=== PATIENT | female | born 1990 | race Caucasian/White ===

== ENCOUNTER 2020-01-29 10:22 | Day surgery (SDC) | payer OTHER ==
[2020-01-29] VITALS (8 sets, daily range): BP systolic 90–122; BP diastolic 43–82; PULSE 60–105; TEMP 97.8
[~2020-01-29] VITALS: Ht 162.6 cm; Wt 104.5 kg
[2020-01-29 11:12] LABS: BASO % 0.7 % (0.0-2.0); EOS # 0.1 (0.0-0.7); EOS % 2.1 % (0-4.0); GRAN # 3.5 (1.4-6.5); HEMATOCRIT 39.7 % (37.0-47.0); HEMOGLOBIN 12.4 g/dl (12.5-16.0); LYMPH # 1.6 (1.2-3.4); LYMPH % 28.7 % (20.0-51.0); MEAN CELL VOLUME 80 fl (80.0-100.0); MEAN CORPUSCULAR HEMOGLOBIN 25 pg (27.0-31.0); MEAN CORPUSCULAR HGB CONC 31 g/dl (33.0-37.0); MEAN PLATELET VOLUME 10.2 fl (7.4-10.4); MONO # 0.4 (0.1-0.6); MONO % 7.1 % (1.7-9.3); PLATELET COUNT 212 K/mm3 (130-400); RED BLOOD COUNT 4.96 M/mm3 (4.10-5.30); REDCELL DISTRIBUTION WIDTH-CV 15.9 % (11.5-14.5)
[2020-01-29 11:20] LABS: BILIRUBIN,TOTAL 0.4 mg/dL (0.0-1.0); C-REACTIVE PROTEIN 0.9 mg/dL (0.0-0.9); CALCIUM 9.1 mg/dL (8.4-10.2); CREATININE, serum 0.59 (0.52-1.25); POTASSIUM 4.2 mmol/L (3.4-5.0); TOTAL PROTEIN 7.2 gm/dL (6.4-8.2)
[2020-01-29 11:56] LABS: COLLECTION METHOD CLEAN CATCH
[2020-01-29 12:14] LABS: MUCOUS Present /lpf; PH 7 (5-8); URINE APPEARANCE Hazy; URINE BACTERIA Rare /hpf; URINE BILIRUBIN Negative (NEGATIVE); URINE BLOOD Negative (NEGATIVE); URINE COLOR Yellow; URINE GLUCOSE Negative (NEGATIVE); URINE KETONE Negative (NEGATIVE); URINE LEUKOCYTE ESTERASE Negative (NEGATIVE); URINE NITRATE Negative (NEGATIVE); URINE PROTEIN(semi-quant) Negative (NEGATIVE); URINE RBC 0-2 /hpf; URINE UROBILINOGEN Negative (NEGATIVE)
[2020-01-29] MEDS ORDERED: MOTRIN 200200 MG/TAB PO (13:37)
[2020-01-29] MEDS ORDERED: ZANTAC 7575 MG (13:37)
--- NOTE | 2020-01-29 18:15 | NUR ---
1815 TO 222 PER BED FROM PACU. IV INFUSING. O2 ON PER LORELEI. ANAND PATENT. SCDS ON. AWAKE AND ALERT. C/0 SOME SURGICAL PAIN. ORIENTED TO ROOM.
--- NOTE | 2020-01-29 19:00 | NUR ---
1900 SITTING UP IN BED. REG DIET OFFERED BUT DOES NOT LIKE THE FOOD HERE. PO FLUIDS TAKEN WELL.
--- NOTE | 2020-01-29 21:15 | NUR ---
2114 SITTING ON SIDE OF BED. YUDY CARE DONE. STATES IS HAVING DISCOMFORT FROM CATH AND WONDERS IF IT CAN BE TAKEN OUT. DR ARSHAD NOTIFIED AND ORDER TO REMOVE. 2119 MICHEL CATH DCD WITH 150CC CONCENTRATED URINE IN BAG. ENCOURAGED TO DRINK MORE FLUIDS. IV ALL INFUSED AND TO INT.
[2020-01-30] VITALS: BP 104/53; PULSE 68; TEMP 97.9
[2020-01-30 04:00] VITALS: BP 107/45; PULSE 71; TEMP 98.5
[2020-01-30 07:01] VITALS: BP 120/46; PULSE 61; TEMP 97.8
[2020-01-30] MEDS ORDERED: IBU600 MG PO (11:37)
[2020-01-30] MEDS ORDERED: NORCO 325 MG-7.1 TAB PO (11:37)
== END 2020-01-30 13:00 | disposition home or self-care (01) ==
LOC: COL.ER 10:22 → OB 13:43 → SDCO 13:43 → COL.ER 13:43 → OB 01-30 13:00 → SDCO 01-30 13:00
PROVIDERS: Physician Assistant
DX: N80.1 Endometriosis of ovary (principal); N83.202 Unspecified ovarian cyst, left side; Z88.0 Allergy status to penicillin; Z88.5 Allergy status to narcotic agent; F17.210 Nicotine dependence, cigarettes, uncomplicated; F41.9 Anxiety disorder, unspecified; Z90.49 Acquired absence of other specified parts of digestive tract
CPT/HCPCS: OP; A4314; C1765; J0330; J0690; J1100; J1170; J1885; J2405; J2704; J2710; J3010; J7030; J7120; Q9967

== ENCOUNTER 2020-07-17 13:21 | Emergency (ER) | payer OTHER ==
[~2020-07-17] VITALS: Ht 162.6 cm; Wt 106.8 kg
[~2020-07-17 13:21] MED LIST: IBU600 MG PO; MOTRIN 200200 MG/TAB PO; NORCO 325 MG-7.1 TAB PO; ZANTAC 7575 MG
[2020-07-17 13:38] VITALS: TEMP 97.9
[2020-07-17] MEDS ORDERED: NORCO 325 MG-51 TAB PO (14:21)
[2020-07-17] MEDS ORDERED: CLEOCIN HC150 MG/CAP PO (14:21)
[2020-07-17 14:46] VITALS: BP 118/79; PULSE 81
== END 2020-07-17 14:44 | disposition home or self-care (01) ==
LOC: COL.ER 13:21
DX: K12.2 Cellulitis and abscess of mouth (principal); Z88.0 Allergy status to penicillin; Z88.6 Allergy status to analgesic agent
CPT/HCPCS: J1170; J1885

== ENCOUNTER 2021-07-12 20:43 | Emergency (ER) | payer SELFPAY ==
[~2021-07-12] VITALS: Ht 162.6 cm; Wt 120.5 kg
[~2021-07-12 20:43] MED LIST changes: +CLEOCIN HC150 MG/CAP PO; +NORCO 325 MG-51 TAB PO
[2021-07-13 00:35] VITALS: BP 141/76; PULSE 72; TEMP 98.2
== END 2021-07-13 00:40 | disposition home or self-care (01) ==
LOC: COL.ER 20:43
DX: R51.9 Headache, unspecified (principal); Z88.6 Allergy status to analgesic agent
CPT/HCPCS: J1200; J1885; J2405; J3010

== ENCOUNTER 2021-07-18 15:27 | Emergency (ER) | payer SELFPAY ==
[~2021-07-18] VITALS: Ht 162.6 cm; Wt 127.3 kg
[2021-07-18 15:43] VITALS: BP 143/69; PULSE 99; TEMP 97.9
== END 2021-07-18 17:17 | disposition left against medical advice (07) ==
LOC: COL.ER 15:27
DX: R51.9 Headache, unspecified (principal); F17.290 Nicotine dependence, other tobacco product, uncomplicated
CPT/HCPCS: J1790; J1885; J3030

== ENCOUNTER 2021-09-04 20:36 | Emergency (ER) | payer SELFPAY ==
[~2021-09-04] VITALS: Ht 162.6 cm; Wt 131.8 kg
[2021-09-04 21:09] VITALS: BP 145/87; TEMP 97.5
[2021-09-04] MEDS ORDERED: CLEOCIN HCL300 MG PO (21:18)
[2021-09-04] MEDS ORDERED: NORCO 325 MG-51 TAB PO (21:18)
[2021-09-04 21:35] VITALS: PULSE 78
== END 2021-09-04 21:35 | disposition home or self-care (01) ==
LOC: COL.ER 20:36
DX: K04.7 Periapical abscess without sinus (principal); Z88.0 Allergy status to penicillin; Z88.5 Allergy status to narcotic agent

== ENCOUNTER 2021-11-16 13:38 | Emergency (ER) | payer SELFPAY ==
[~2021-11-16] VITALS: Ht 162.6 cm; Wt 127.3 kg
[~2021-11-16 13:38] MED LIST changes: +CLEOCIN HCL300 MG PO
[2021-11-16 13:43] VITALS: TEMP 98.1
[2021-11-16 14:36] LABS: BASO % 0.3 % (0.0-2.0); GRAN # 1.4 K/mm3 (1.4-6.5); GRAN % 44.9 % (42.2-75.2); HEMATOCRIT 41.3 % (37.0-47.0); HEMOGLOBIN 13.2 g/dl (12.5-16.0); LYMPH # 1.2 K/mm3 (1.2-3.4); LYMPH % 40.6 % (20.0-51.0); MEAN CELL VOLUME 78 fl (80.0-100.0); MEAN CORPUSCULAR HEMOGLOBIN 25 pg (27-31); MEAN CORPUSCULAR HGB CONC 32 g/dl (33.0-37.0); MEAN PLATELET VOLUME 10.2 fl (7.4-10.4); MONO # 0.4 K/mm3 (0.1-0.6); MONO % 14.2 % (1.7-9.3); PLATELET COUNT 232 K/mm3 (130-400); RED BLOOD COUNT 5.27 M/mm3 (4.10-5.30); REDCELL DISTRIBUTION WIDTH-CV 14.7 % (11.5-14.5)
[2021-11-16 14:52] LABS: COLLECTION METHOD CLEAN CATCH
[2021-11-16 14:55] LABS: ALBUMIN 3.7 gm/dL (3.5-5.0); BILIRUBIN,TOTAL 0.4 mg/dL (0.2-1.2); C-REACTIVE PROTEIN 0.74 mg/dL (0.00-0.50); CREATININE, serum 0.84 mg/dL (0.57-1.11); POTASSIUM 3.7 mmol/L (3.5-4.5); TOTAL PROTEIN 8.4 gm/dL (6.2-8.1)
[2021-11-16 15:04] LABS: MUCOUS Present (NOT PRESENT); URINE BACTERIA Many /hpf (NONE SEEN)
[2021-11-16 15:05] LABS: URINE APPEARANCE Clear (CLEAR/HAZY); URINE COLOR Yellow (YELLOW)
[2021-11-16 15:06] LABS: PH 6 (5-8); URINE BILIRUBIN Negative (NEGATIVE); URINE BLOOD Negative (NEGATIVE); URINE GLUCOSE Negative (NEGATIVE); URINE KETONE Negative (NEGATIVE); URINE LEUKOCYTE ESTERASE Negative (NEGATIVE); URINE NITRATE Negative (NEGATIVE); URINE PROTEIN(semi-quant) 1+ (NEGATIVE); URINE UROBILINOGEN Negative (NEGATIVE)
[2021-11-16] MEDS ORDERED: CEFTIN500 MG PO (15:30)
[2021-11-16 16:17] VITALS: BP 116/73; PULSE 88
== END 2021-11-16 16:20 | disposition home or self-care (01) ==
LOC: COL.ER 13:38
PROVIDERS: Nurse Practitioner
DX: N39.0 Urinary tract infection, site not specified (principal); G89.29 Other chronic pain; Z88.0 Allergy status to penicillin; Z88.5 Allergy status to narcotic agent; Z79.891 Long term (current) use of opiate analgesic
CPT/HCPCS: J0696; J1885; J2405; J7030

== ENCOUNTER 2022-01-10 13:05 | Emergency (ER) | payer SELFPAY ==
[~2022-01-10] VITALS: Ht 162.6 cm; Wt 127.3 kg
[~2022-01-10 13:05] MED LIST changes: +CEFTIN500 MG PO
[2022-01-10 13:11] VITALS: TEMP 97.5
[2022-01-10] MEDS ORDERED: NORCO 325 MG-51 TAB PO ×2 (13:18→13:20)
[2022-01-10] MEDS ORDERED: CLEOCIN HCL300 MG PO (13:18)
[2022-01-10 13:36] VITALS: BP 140/87; PULSE 81
== END 2022-01-10 13:43 | disposition home or self-care (01) ==
LOC: COL.ER 13:05
DX: K04.7 Periapical abscess without sinus (principal); Z88.0 Allergy status to penicillin

== ENCOUNTER 2022-01-12 10:32 | Emergency (ER) | payer SELFPAY ==
[~2022-01-12] VITALS: Ht 162.6 cm; Wt 127.3 kg
[2022-01-12 10:39] VITALS: BP 136/81; TEMP 98.2
[2022-01-12] MEDS ORDERED: LEVAQUIN 750MG750 M1 PO (11:57)
[2022-01-12] MEDS ORDERED: PREDNISONE20 MG PO (11:57)
[2022-01-12] MEDS ORDERED: NORCO 325 MG-51 TAB PO (11:57)
[2022-01-12 12:25] VITALS: PULSE 98
== END 2022-01-12 12:25 | disposition home or self-care (01) ==
LOC: COL.ER 10:32
DX: J32.0 Chronic maxillary sinusitis (principal); Z88.0 Allergy status to penicillin; Z88.1 Allergy status to other antibiotic agents; Z88.6 Allergy status to analgesic agent
CPT/HCPCS: J2550; J3010

== ENCOUNTER 2023-07-25 10:21 | Emergency (ER) | payer SELFPAY ==
[~2023-07-25] VITALS: Ht 162.6 cm; Wt 127.3 kg
[~2023-07-25 10:21] MED LIST changes: +LEVAQUIN 750MG750 M1 PO; +PERCOCET 325 MG1 TA2 PO; +PREDNISONE20 MG PO; +PROTONIX 40MG T40 MG PO; +ZOFRAN 4MG T4 MG/TAB PO; +ZOFRAN ODT4 MG PO
[2023-07-25] MEDS ORDERED: CLEOCIN HCL300 MG PO (11:21)
[2023-07-25 11:40] VITALS: BP 145/83; PULSE 108; TEMP 98.3
== END 2023-07-25 11:40 | disposition home or self-care (01) ==
LOC: COL.ER 10:21
DX: K08.9 Disorder of teeth and supporting structures, unspecified (principal); Z88.0 Allergy status to penicillin; Z28.310 Unvaccinated for COVID-19